=== PATIENT | female | born 1940 | race Caucasian/White ===

== ENCOUNTER 2016-12-26 12:41 | Emergency (ER) | payer OTHER, MEDICARE ==
[~2016-12-26] VITALS: Ht 160 cm; Wt 117.9 kg
[2016-12-26 12:49] VITALS: BP 127/65
--- NOTE | 2016-12-26 12:51 | ED UPPER/LOWER EXTREMITY COMPL ---
History of Present Illness General Chief Complaint: Lower Extremity Problems Stated Complaint: L KNEE PAIN Source: patient, family, old records Exam Limitations: no limitations Vital Signs & Intake/Output Vital Signs & Intake/Output Vital Signs Date Time Temp Pulse Resp B/P B/P Pulse O2 O2 Flow FiO2 Mean Ox Delivery Rate 12/26 1249 98.3 75 20 127/65 98 Room Air Allergies Coded Allergies: Penicillins (UNKNOWN 12/26/16) amoxicillin (UNKNOWN 12/26/16) morphine (UNKNOWN 12/26/16) Reconcile Medications Atenolol 25 MG TABLET 1 TAB PO DAILY HEART (Reported) Cholecalciferol (Vitamin D3) 1,000 UNIT TABLET 1 TAB PO DAILY VITAMIN SUPPORT (Reported) Furosemide 40 MG TABLET 1 TAB PO BID WATER RETENTION (Reported) Omeprazole (Unknown Strength) CAPSULE.DR (Unknown Dose) PO DAILY GI (Reported ) Potassium Chloride 20 MEQ TAB.ER.PRT 1 TAB PO DAILY SUPPLEMENT (Reported) Triage Note: TWISTED LEFT KNEE YESTERDAY WHEN STEPPING OUT THE DOOR Triage Nurses Notes Reviewed? yes HPI: Patient is a 76-year-old female presents complaining of left knee pain. Patient reports that her left knee has been buckling for a couple of weeks. Yesterday patient was walking out the door 1 she accidentally twisted her left knee causing increasing pain. Pain is currently 6 out of 10, was severe prior to arrival. Pain worsens with range of motion of the left knee. Patient took Aleve this morning with moderate improvement. Patient denies head injury, neck pain, back pain, decreased range of motion, numbness. (JANELLE MCKINLEY) Past History Travel History Traveled to [place] past 21 day No Medical History Any Pertinent Medical History? see below for history Cardiovascular: hypertension Other Medical Hx: Seasonal allergies Surgical History Surgical History: non-contributory Psychosocial History What is your primary language Maori Tobacco Use: Never used ETOH Use: occasional use Illicit Drug Use: denies illicit drug use Family History Hx Contributory? No (JANELLE MCKINLEY) Review of Systems Review of Systems Constitutional: Reports: no symptoms. EENTM: Reports: nasal congestion. Respiratory: Denies: short of breath. Cardiovascular: Denies: chest pain. Gastrointestinal/Abdominal: Denies: abdominal pain. Musculoskeletal: Reports: see HPI. Denies: back pain, neck pain. Skin: Reports: no symptoms. Neurological/Psychological: Denies: numbness. Hematologic/Endocrine: Denies: bruising, bleeding. Immunological: Denies: splenectomy. (JANELLE MCKINLEY) Physical Exam Physical Exam General Appearance: well developed/nourished, alert, awake Head: atraumatic, normal appearance Eyes: Bilateral: normal appearance. Ears, Nose, Throat: hearing grossly normal Neck: normal inspection, supple, full range of motion, no midline tenderness Cardiovascular/Respiratory: normal breath sounds, regular rate/rhythm, no respiratory distress Peripheral Pulses: 2+ dorsalis pedis (L) Back: normal inspection, normal range of motion, no vertebral tenderness Leg Left: normal range of motion, normal inspection Hip Left: normal range of motion, normal inspection, nontender Knee Left: TENDERNESS PROXIMAL TIBIA LATERALLY. tENDERNESS LEFT LATERAL JOINT SPACE. fULL ACTIVE FLEXION AND EXTENSION. nEGATIVE Sofia's test, negative varus stress test, negative valgus stress test. Foot Left: normal inspection, normal range of motion, nontender Neurologic/Tendon: normal sensation, normal motor functions, normal tendon functions Skin: intact, normal color, warm/dry (JANELLE MCKINLEY) Progress Differential Diagnosis: contusion, dislocation, fracture, gout, septic arthritis , sprain, tendon injury Plan of Care: Orders Procedure Date/time Status XRY-KNEE COMPLETE LEFT 12/26 1255 Active 1340: Results of x-ray discussed with patient and her family. Eloy wrap placed by nurse. Appears stable for discharge and follow up with her orthopedist, Dr. Huddleston. (JANELLE MCKINLEY) Diagnostic Imaging: Viewed by Me: Radiology Read. Discussed w/RAD: Radiology Read. Radiology Impression: PATIENT: RIZWAN OBANDO PRESENT AGE: 76 PATIENT ACCOUNT NO: [id number] : 39 LOCATION: [facility] ORDERING PHYSICIAN: JANELLE KENNEDY SERVICE DATE: 12/26/16-1254 EXAM TYPE: RAD - XRY-KNEE COMPLETE LEFT EXAMINATION: XR KNEE, LEFT CLINICAL INFORMATION: Left knee pain status post twisted knee yesterday COMPARISON: None TECHNIQUE: Four views of the left knee. 6 images. FINDINGS: The alignment is normal. Moderate narrowing of the patellofemoral joint is seen with irregularity of the patellar articular surface and degenerative osteophytes. Mild associated narrowing of the medial compartment with small medial femoral osteophyte formation. Lateral joint compartment is maintained. No additional findings. IMPRESSION: Degenerative changes are seen involving the medial and patellofemoral joints as above. No acute osseous abnormality. DICTATED BY: KARMA DONAHUE MD DATE/TIME DICTATED:1329 EMERGENCY ROOM NURSE:CHRISTOS DATE/TIME TRANSCRIBED:12/26/161329 CONFIDENTIAL, DO NOT COPY WITHOUT APPROPRIATE AUTHORIZATION. <Electronically signed in Other Vendor System> SIGNED BY: KARMA DONAHUE MD 12/26/16 1339 (JANELLE MCKINLEY) Departure Departure Time of Disposition: 1343 Disposition: HOME OR SELF CARE Condition: Stable Clinical Impression Primary Impression: Left knee sprain Secondary Impressions: Arthritis of left knee Referrals: GOKUL ANDERSON,MOSES Ocampo (PCP/Family) YANIV ANDERSON PhD,MARLON HUDDLESTON MD,BRYSON Additional Instructions: Rest, ice for 20 minutes 4-5 times a day, elevate, wear Eloy wrap for support. Follow-up with your orthopedist, Dr. Huddleston, for further evaluation. Call Wednesday for appointment. Return to the ER if worsening of symptoms. Departure Forms: Customer Survey General Discharge Information (JANELLE MCKINLEY) PA/[employer] Co-Sign Statement Statement: ED Attending supervision documentation- [X] I saw and evaluated the patient. I have also reviewed all the pertinent lab results and diagnostic results. I agree with the findings and the plan of care as documented in the PA's/[employer]'s documentation. [X] I have reviewed the ED Record and agree with the PA's/[employer]ER's documentation. [] Additions or exceptions (if any) to the PAs/[employer]ER's note and plan are summarized below: [] (TIMOTHY ANDERSON,JANET Cam)
[2016-12-26] MEDS ORDERED: ATENOLOL25 M1 PO (12:56)
[2016-12-26] MEDS ORDERED: FUROSEMIDE40 M1 PO (12:57)
[2016-12-26] MEDS ORDERED: POTASSIUM CHLO20 ME2 PO (12:57)
[2016-12-26] MEDS ORDERED: OMEPRAZOLE20 M2 PO (12:57)
[2016-12-26] MEDS ORDERED: VITAMIN D31000 UNI2 PO (12:58)
--- NOTE | 2016-12-26 13:39 | RADIOLOGY REPORT ---
EXAMINATION: XR KNEE, LEFT CLINICAL INFORMATION: Left knee pain status post twisted knee yesterday COMPARISON: None TECHNIQUE: Four views of the left knee. 6 images. FINDINGS: The alignment is normal. Moderate narrowing of the patellofemoral joint is seen with irregularity of the patellar articular surface and degenerative osteophytes. Mild associated narrowing of the medial compartment with small medial femoral osteophyte formation. Lateral joint compartment is maintained. No additional findings. IMPRESSION: Degenerative changes are seen involving the medial and patellofemoral joints as above. No acute osseous abnormality.
== END 2016-12-26 13:54 ==
LOC: ERH 12:41
DX: S83.92XA Sprain of unspecified site of left knee, initial encounter (principal); M17.9 Osteoarthritis of knee, unspecified; X50.9XXA Other and unspecified overexertion or strenuous movements or postures, initial encounter; Y93.01 Activity, walking, marching and hiking; Y92.9 Unspecified place or not applicable
CPT/HCPCS: 73562-LT